=== PATIENT | male | born 1990 | race Two or more races ===

== ENCOUNTER → 2021-07-05 | Emergency (ER) | payer SELFPAY ==
[~2021-07-05] VITALS: Ht 180.3 cm; Wt 90.7 kg
[~2021-07-05] MED LIST: IBUPROFEN 400 MG TABLET ONE; IBUPROFEN 400 MG TABLET PO ONE
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
[2021-07-05 03:23] VITALS: BP 129/70
--- NOTE | 2021-07-05 03:23 | NUR ---
Patient discharged to home in stable condition. Written and verbal after care instructions given. Patient verbalizes understanding of instruction.
== END | disposition home or self-care (01) ==
LOC: ER 01:06
DX: S16.1XXA Strain of muscle, fascia and tendon at neck level, initial encounter (principal); V49.49XA Driver injured in collision with other motor vehicles in traffic accident, initial encounter; Y93.89 Activity, other specified; Y92.413 State road as the place of occurrence of the external cause; Y99.8 Other external cause status
CPT/HCPCS: 70490-TC

== ENCOUNTER 2021-07-21 00:53 | Emergency (ER) | payer OTHER ==
[~2021-07-21] VITALS: Ht 175.3 cm; Wt 77.1 kg
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
[2021-07-21 01:24] VITALS: BP 140/77
--- NOTE | 2021-07-21 01:50 | NUR ---
PT RETURNED TO ER BED [address]
--- NOTE | 2021-07-21 02:07 | NUR ---
FOLLOWED UP WITH [facility] REGARDING IMAGING
== END 2021-07-21 02:38 ==
LOC: EDBD 00:56 → ER 00:56
DX: F17.200 Nicotine dependence, unspecified, uncomplicated; Z60.2 Problems related to living alone
CPT/HCPCS: 70450-TC; 71045-TC; 72125-TC

== ENCOUNTER 2021-11-12 05:09 | Emergency (ER) | payer OTHER ==
[~2021-11-12] VITALS: Ht 170.2 cm; Wt 70.3 kg
[2021-11-12 05:32] VITALS: BP 131/70
--- NOTE | 2021-11-12 05:41 | NUR ---
Patient discharged to home in stable condition. Written and verbal after care instructions given. Patient verbalizes understanding of instruction. Pt ambulatory with a steady gait
--- NOTE | 2021-11-12 05:41 | NUR ---
Patient discharged to home in stable condition. Written and verbal after care instructions given. Patient verbalizes understanding of instruction. PT ambulatory with a steady gait
== END 2021-11-12 05:42 | disposition home or self-care (01) ==
LOC: ER 05:13
DX: Z48.02 Encounter for removal of sutures (principal); F17.200 Nicotine dependence, unspecified, uncomplicated; Z60.2 Problems related to living alone